=== PATIENT | female | born 1985 | race Caucasian/White ===

== ENCOUNTER 2020-05-09 13:30 | Emergency (ER) | payer OTHER, SELFPAY ==
[2020-05-09 13:34] VITALS: BP 152/98; PULSE 97; RESP 20; TEMP 36.2; O2SAT 100
--- NOTE | 2020-05-09 13:51 | ED.DENTAL ---
HPI - Dental/Oral General Chief complaint: Dental/Oral Stated complaint: toothache Time Seen by Provider: 05/09/20 13:37 History of Present Illness HPI Narrative: Patient is a 35-year-old female who presents ER with dental pain. Tooth #13. Began 4 days ago. She found some leftover antibiotics at home and began taking those 2 days ago. Developed some swelling to her left upper cheek today which concerned her. Has pain to her left upper cheek going back towards her ear. No difficulty breathing or swallowing. No drainage from the tooth. She is scheduled to see her dentist tomorrow. Ibuprofen is not helping her pain. Related Data Allergies Allergy/AdvReac Type Severity Reaction Status Date / Time No Known Allergies Allergy Unknown Unverified 04/28/15 12:52 Review of Systems Constitutional: Constitutional: Denies chills and Denies fever(s) ENT: Denies nasal congestion and Denies sore throat Comments: Dental pain Respiratory: Respiratory: Denies dyspnea PMFSH Family History Family History (Updated 02/18/16 @ 23:19 by DOCTOR UNKNOWN) Grandparent Hypertension Malignant neoplasm of prostate Family history of malignant neoplasm of brain Family history of heart disease in male family member before age 55 Mother Family history of kidney disease Family history of diabetes mellitus in first degree relative Family history of heart disease in male family member before age 55 Sibling Family history of kidney disease Family history of hypothyroidism Other Diabetes mellitus Family history of liver disease Social History Social History Smoking status: Never smoker Second hand tobacco smoke exposure: Yes Smoking end date: 07/23/14 Alcohol intake: current Exam Narrative: Exam Narrative: GENERAL: Well-appearing, well-nourished, and in no acute distress. HEAD: Normocephalic, atraumatic. ENT: Mucous membranes moist. Gingival erosion tooth #13 with tenderness of the tooth and along the buccal mucosa neck region. No discernible abscess at this time. Mild left facial swelling. TMs normal bilaterally. NEURO: Alert and oriented x3. PSYCH: Normal mood and affect. Course Course Emergency Course: [place] here. Discharge with Augmentin and [place]. Vital Signs Vital signs: Vital Signs Temperature 97.2 F L 05/09/20 13:34 Pulse Rate 97 05/09/20 13:34 Respiratory Rate 20 05/09/20 13:34 Blood Pressure 152/98 H 05/09/20 13:34 Pulse Oximetry 100 05/09/20 13:34 Temperature 97.2 F L 05/09/20 13:34 Pulse Rate 97 05/09/20 13:34 Respiratory Rate 20 05/09/20 13:34 Blood Pressure 152/98 H 05/09/20 13:34 Pulse Oximetry 100 05/09/20 13:34 Discharge Plan Discharge Clinical Impression: Toothache Patient Disposition: Home, Self-Care Condition: Stable Instructions: Antibiotic Form, Dental Abscess (ED) Additional Instructions: Return to the ER if you have worsening pain, you cannot breathe, you cannot swallow, have additional concerns. Please follow-up with your dentist as previously scheduled. Prescriptions: New hydrocodone-acetaminophen 5-325 mg tablet 1 tablet PO Q6H PRN (Reason: pain) Qty: 20 RF: 0 amoxicillin-pot clavulanate [Augmentin] 875-125 mg tablet 1 tablet PO Q12H Qty: 20 RF: 0 Follow-up/Referrals: UNKNOWN,DOCTOR [Non-Staff] - 1 Week Stand Alone Forms: Work/School Release IP
[2020-05-09] MEDS: HYDROcodone/acetaminophen (*CRX) 5-325 MG TABLET 1 TAB PO (13:58)
== END 2020-05-09 14:07 | disposition home or self-care (01) ==
PROVIDERS: Emergency Provider Emergency Medicine; PCP Internal Medicine
DX: K08.89 Other specified disorders of teeth and supporting structures (principal)
CPT/HCPCS: 99283; A9270

== ENCOUNTER 2023-02-16 18:51 | Emergency (ER) | payer BC, SELFPAY ==
[2023-02-16 19:05] VITALS: BP 127/84; PULSE 93; RESP 16; TEMP 36.4; O2SAT 99
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
== END 2023-02-16 19:38 | disposition home or self-care (01) ==
PROVIDERS: Emergency Provider Registered Nurse; PCP Nurse Practitioner Family
DX: M54.50 Low back pain, unspecified (principal); R35.0 Frequency of micturition; Z87.891 Personal history of nicotine dependence; F12.90 Cannabis use, unspecified, uncomplicated; I10 Essential (primary) hypertension; F41.9 Anxiety disorder, unspecified; F32.A Depression, unspecified
CPT/HCPCS: 81003; 87086; 87088; 99213; G0463